=== PATIENT | female | born 1955 | race Caucasian/White ===

== ENCOUNTER → 2016-11-20 | Outpatient (CLI) | payer BC ==
[~2016-11-20] MED LIST: IMITREX100 MG PO; ISOPTIN SR180 M1 PO; LEVOTHYROXINE0.15 MG PO; METOPROLOL SR100 MG PO
== END ==
LOC: MC.RAD 11:14
DX: Z12.31 Encounter for screening mammogram for malignant neoplasm of breast (principal)

== ENCOUNTER → 2017-12-23 | Outpatient (CLI) | payer BC | LOC: MC.RAD 07:32 | DX: Z12.31 Encounter for screening mammogram for malignant neoplasm of breast (principal); N64.89 Other specified disorders of breast ==

== ENCOUNTER → 2018-01-04 | Outpatient (CLI) | payer BC | LOC: MC.RAD 12:52 | DX: R92.1 Mammographic calcification found on diagnostic imaging of breast (principal); N64.89 Other specified disorders of breast ==

== ENCOUNTER → 2018-07-11 | Outpatient (CLI) | payer BC | LOC: MC.RAD 08:57 | DX: N63.20 Unspecified lump in the left breast, unspecified quadrant (principal) | CPT/HCPCS: G0279 ==

== ENCOUNTER → 2018-12-26 | Outpatient (CLI) | payer BC | LOC: MC.RAD 08:45 | DX: Z12.31 Encounter for screening mammogram for malignant neoplasm of breast (principal) ==

== ENCOUNTER → 2019-12-29 | Outpatient (CLI) | payer BC | LOC: MC.RAD 10:28 | DX: Z12.31 Encounter for screening mammogram for malignant neoplasm of breast (principal) ==

== ENCOUNTER → 2020-12-30 | Outpatient (CLI) | payer BC | LOC: MC.RAD 09:01 | DX: Z12.31 Encounter for screening mammogram for malignant neoplasm of breast (principal) ==

== ENCOUNTER → 2021-12-31 | Outpatient (CLI) | payer MEDICARE | LOC: MC.RAD 07:53 | DX: Z12.31 Encounter for screening mammogram for malignant neoplasm of breast (principal); N64.89 Other specified disorders of breast ==

== ENCOUNTER → 2022-01-05 | Outpatient (CLI) | payer MEDICARE | LOC: MC.RAD 12:50 | DX: Z12.31 Encounter for screening mammogram for malignant neoplasm of breast (principal); N64.59 Other signs and symptoms in breast ==

== ENCOUNTER → 2022-01-07 | Outpatient (CLI) | payer MEDICARE | LOC: MC.RAD 06:52 | DX: R92.8 Other abnormal and inconclusive findings on diagnostic imaging of breast (principal) ==

== ENCOUNTER → 2024-01-28 | Outpatient (CLI) | payer MEDICARE | LOC: MC.RAD 07:55 | DX: Z12.31 Encounter for screening mammogram for malignant neoplasm of breast (principal); Z01.419 Encounter for gynecological examination (general) (routine) without abnormal findings ==